=== PATIENT | male | born 1950 | race Caucasian/White ===

== ENCOUNTER 2023-07-17 19:04 | Emergency (ER) | payer MEDICARE, BC ==
[~2023-07-17] VITALS: Ht 170.2 cm; Wt 62.7 kg
[2023-07-17] MEDS ORDERED: Ibuprofen 400 MG TAB PO ONE (19:30)
[2023-07-17] MEDS ORDERED: NS 1,000 ML IV ONE (19:30)
[2023-07-17] MEDS ORDERED: Acetaminophen 500 MG TAB PO ONE (19:30)
[2023-07-17 19:56] LABS: BASO % 0.2 % (0.0-2.0); EOS # 0.1 K/mm3 (0.0-0.7); EOS % 0.6 % (0.0-4.0); GRAN # 8.3 K/mm3 (1.4-6.5); HEMATOCRIT 43.2 % (42.0-52.0); HEMOGLOBIN 15.2 g/dl (13.5-18.0); LYMPH # 0.5 K/mm3 (1.2-3.4); LYMPH % 5.2 % (20.0-51.0); MEAN CELL VOLUME 84 fl (80.0-100.0); MEAN CORPUSCULAR HEMOGLOBIN 30 pg (27-31); MEAN CORPUSCULAR HGB CONC 35 g/dl (33.0-37.0); MEAN PLATELET VOLUME 9.1 fl (7.4-10.4); MONO % 9.7 % (1.7-9.3); PLATELET COUNT 115 K/mm3 (130-400); RED BLOOD COUNT 5.13 M/mm3 (4.20-5.60); REDCELL DISTRIBUTION WIDTH-CV 12.8 % (11.5-14.5)
[2023-07-17 20:09] LABS: ALBUMIN 3.7 g/dL (3.4-4.8); CALCIUM 9.2 mg/dL (8.4-10.2); CREATININE, serum 1.01 mg/dL (0.72-1.25); POTASSIUM 3.5 mEq/L (3.5-4.5); TOTAL PROTEIN 6.7 g/dl (6.2-8.1)
[2023-07-17] MEDS ORDERED: DOXYCYCLINE 10100 MG PO (20:49)
[2023-07-17] MEDS ORDERED: Doxycycline Monohydrate 100 MG CAP PO ONE (21:00)
[2023-07-17 21:34] VITALS: BP 125/83; PULSE 82; TEMP 98.2
== END 2023-07-17 21:39 | disposition home or self-care (01) ==
LOC: COL.ER 19:04
PROVIDERS: Nurse Practitioner Primary Care
DX: J22 Unspecified acute lower respiratory infection (principal)
CPT/HCPCS: J7030